=== PATIENT | female | born 1930 | race Two or more races ===

== ENCOUNTER 2020-03-10 16:24 | Emergency (ER) | payer BC, MEDICARE ==
[2020-03-10 16:33] VITALS: RESP 18; TEMP 97.5
--- NOTE | 2020-03-10 17:16 | XR ---
EXAMINATION TYPE: XR chest 2V DATE OF EXAM: 03/10/2020 COMPARISON: NONE HISTORY: Fall. Pain. TECHNIQUE: 2 views FINDINGS: There is coarse interstitial infiltrates in both lungs. Heart size is normal. There is redu lakeisha lung volume. There are no hilar masses. There is some mild honeycomb pattern in the periphery of the lungs. Bony thorax is intact. IMPRESSION: Advanced pulmonary fibrosis. No heart failure seen. Normal heart size.
--- NOTE | 2020-03-10 17:18 | XR ---
EXAMINATION TYPE: XR wrist complete RT DATE OF EXAM: 03/10/2020 COMPARISON: NONE HISTORY: Pain. Fall. TECHNIQUE: 4 views FINDINGS: There is an acute transverse impacted fracture distal radial metaphysis. This is 1.3 cm fro m the wrist joint. Distal ulna is intact. Carpal bones are intact. There is no dislocation. There is spurring at the first carpometacarpal joint. IMPRESSION: Acute nondisplaced mildly impacted distal radius fracture.
--- NOTE | 2020-03-10 18:41 | CT ---
EXAMINATION TYPE: CT brain zev arrieta con DATE OF EXAM: 03/10/2020 COMPARISON: None HISTORY: Fall. Pain. CT DLP: mGycm Automated exposure control for dose reduction was used. There is cerebral cortical atrophy. There is no mass effect nor midline shift. There is no sign of in tracranial hemorrhage. There is some patchy hypodensity in the white matter in both posterior parieta l lobes. The calvarium is intact. Skull base is intact. There is normal aeration of the mastoid sinus es. Cervical vertebra have fairly normal alignment. There is degenerative disc space nor in from C3 to C7 with spurring of the endplates. Posterior elements are intact. There is mild hypertrophic cervical f acet arthropathy. There is no evidence of cervical spine fracture. IMPRESSION: Cerebral atrophy. No acute intracranial abnormality. Chronic small vessel ischemia. Spondylotic changes in the cervical spine. No fracture. Fibrotic changes noted in the visualized uppe r lung bush.
[2020-03-10 18:49] VITALS: BP 133/77; PULSE 89
--- NOTE | 2020-03-10 18:49 | ED ---
General Adult HPI - General Chief complaint: Fall Stated complaint: fall Time Seen by Provider: 03/10/20 16:30 Source: patient, RN notes reviewed, old records reviewed Mode of arrival: ambulatory Limitations: no limitations - History of Present Illness Initial comments: 89-year-old female patient ED for evaluation of fall. Patient reports that she was sitting on a barstool when she tipped backwards fell backwards fell on her right outstretched arm. Patient denies any known trauma to the head or the neck. Cheif complaint is right wrist pain. Denies any other complaints. Systemic: Pt denies fatigue, fever/chills, rash. Pt denies weakness, night sweats, weight loss. Neuro: Pt denies headache, visual disturbances, syncope or pre-syncope. HEENT: Pt denies ocular discharge or irritation, otalgia, rhinorrhea, pharyngitis or notable lymphadenopathy. Cardiopulmonary: Pt denies chest pain, SOB, heart palpitations, dyspnea on exertion. Abdominal/GI: Pt denies abdominal pain, n/v/d. : Pt denies dysuria, burning w/ urination, frequency/urgency. Denies new onset urinary or bowel incontinence. MSK: Pt denies mloss of strength or function in extremities. Neuro: Pt denies new onset weakness, paresthesias. - Related Data Allergies Allergy/AdvReac Type Severity Reaction Status Date / Time No Known Allergies Allergy Verified 03/10/20 16:33 Review of Systems ROS Statement: Those systems with pertinent positive or pertinent negative responses have been documented in the HPI. ROS Other: All systems not noted in ROS Statement are negative. Past Medical History Past Medical History: COPD, Hypertension History of Any Multi-Drug Resistant Organisms: None Reported Past Surgical History: Orthopedic Surgery Past Psychological History: Depression Smoking Status: Former smoker Past Alcohol Use History: Daily General Exam - General Exam Comments Initial Comments: Constitutional: NAD, AOX3, Pt has pleasant affect. HEENT: NC/AT, trachea midline, neck supple, no lymphadenopathy. External ears appear normal, without discharge. Mucous membranes moist. Eyes PERRLA, EOM intact. There is no scleral icterus. No pallor noted. Cardiopulmonary: RRR, no murmurs, rubs or gallops, no JVD noted. Lungs CTAB in anterior and posterior bush. No peripheral edema. Abdominal exam: Abdomen soft and non-distended. Abdomen non-tender to palpation in all 4 quadrants. Neuro: CN II-XII intact. No nuchal rigidity. No raccon eyes, no staley sign, no hemotympanum. No cervical spinal tenderness. MSK: Mild tenderness to the right distal radius. No other areas of tenderness in upper or lower extremities. Radial pulses +2. Patient placed in a radial gutter splint. No vascular intact before and after splint placement. Limitations: no limitations Course Vital Signs 03/10/20 03/10/20 16:26 17:39 Temperature 97.5 F L Pulse Rate 79 77 Respiratory 18 18 Rate Blood Pressure 91/66 95/58 O2 Sat by Pulse 96 99 Oximetry Procedures - Orthopedic Splinting/Casting Injury #1 Side: right Upper Extremity Injury Location: wrist Upper Extremity Immobilizer: volar splint (/radial gutter ) Medical Decision Making - Medical Decision Making 89-year-old female patient ED for evaluation of a fall. Chief complaint is right wrist pain. Physical exam doesn't display some tenderness the distal right radius. Repeat exam there is also a small bruise noted above the right eye. Plain film of right wrist displays an acute nondisplaced mildly impacted distal radius fracture. Chest x-ray reveals advanced pulmonary fibrosis. Range CT displayed no acute cranial abnormality, no fracture in the cervical spine. Patient discharged outpatient orthopedic follow-up and return precautions. Case discussed with Dr Celis. Disposition Clinical Impression: Distal radius fracture, right Disposition: HOME SELF-CARE Condition: Stable Instructions (If sedation given, give patient instructions): Arm Fracture in Adults (ED) Additional Instructions: Follow up with PCP and orthopedist tomorrow. Return to ED with any worsening symptoms. Continue to wear splint. Return to ED with any worsening symptoms. Is patient prescribed a controlled substance at d/c from ED?: No Referrals: Brant Johnson MD [Primary Care Provider] - 1-2 days Reginaldo Cummings DO [Doctor of Osteopathic Medicine] - 1-2 days
== END 2020-03-10 19:02 | disposition home or self-care (01) ==
LOC: EC 16:24
DX: S52.501A Unspecified fracture of the lower end of right radius, initial encounter for closed fracture (principal); S00.11XA Contusion of right eyelid and periocular area, initial encounter; J84.10 Pulmonary fibrosis, unspecified; Z87.891 Personal history of nicotine dependence; W17.89XA Other fall from one level to another, initial encounter; Y92.009 Unspecified place in unspecified non-institutional (private) residence as the place of occurrence of the external cause
CPT/HCPCS: 29125; 70450; 71046; 72125; 99284